=== PATIENT | male | born 1990 | race Caucasian/White ===

== ENCOUNTER 2018-04-16 00:15 | Inpatient (IN) ==
[2018-04-16] MEDS ORDERED: ceFAZolin 2 GM Premix Inj 2 GM/50 ML PIGGYBACK IV.SIG ONE ×2 (00:22→00:30)
[2018-04-16] MEDS ORDERED: Sod Chloride 0.9% Inj 1,000 ML IV.SIG ONE ×2 (00:30→09:00)
[2018-04-16 00:33] LABS: Baso # (Auto) 0.1 th/mm3 (0.0-0.2); Baso % (Auto) 0.6 % (0.0-2.0); Eos % (Auto) 0.2 % (0.0-4.0); Hematocrit 40.8 % (39.0-51.0); Hemoglobin 13.7 gm/dL (13.0-17.0); Lymph # (Auto) 3.9 th/mm3 (1.0-4.8); Lymph % (Auto) 21.2 % (9.0-44.0); Mean Corpuscular HGB Conc 33.5 % (32.0-36.0); Mean Corpuscular Hemoglobin 31.8 pg (27.0-34.0); Mean Corpuscular Volume 94.8 fL (80.0-100.0); Mean Platelet Volume 8.4 fL (7.0-11.0); Mono # (Auto) 0.7 th/mm3 (0.0-0.9); Mono % (Auto) 3.9 % (0.0-8.0); Neut # (Auto) 13.8 th/mm3 (1.8-7.7); Neut % (Auto) 74.1 % (16.0-70.0); Platelet Count 214 th/mm3 (150-450); Red Cell Distribution Width 12.5 % (11.6-17.2); White Blood Count 18.6 th/mm3 (4.0-11.0)
[2018-04-16 00:45] LABS: Activated Partial Thrombo Time 24.7 sec (23.4-31.7); INR 1.2 Ratio; Prothrombin Time 11.7 sec (9.8-11.6)
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
[2018-04-16] MEDS ORDERED: Acetaminophen 325 MG Tablet PO PRN (01:20)
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
[2018-04-16] MEDS ORDERED: Propofol Inj 500 MG/50 ML Vial ONE (01:27)
[2018-04-16] MEDS ORDERED: Sod Chloride 0.9% Inj 1,000 ML IV.CONT SCH (01:30)
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
[2018-04-16] MEDS ORDERED: Propofol 1000 mg/100 ml Inj 1,000 MG/100 ML BOTTLE IV.CONT PRN (01:38)
[2018-04-16] MEDS ORDERED: fentaNYL 10 mcg/mL Premix Drip 2,500 MCG/250 ML BAG IV.SIG PRN (01:41)
[2018-04-16] MEDS ORDERED: Sod Chloride 0.9% Inj 2,000 ML IV.SIG ONE ×2 (01:45→02:30)
[2018-04-16] MEDS ORDERED: Norepinephrine Inj 4 MG/4 ML Ampul ONE (01:52)
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
[2018-04-16] MEDS ORDERED: Pantoprazole Inj 40 MG Vial IV.PUSH SCH (02:00)
[2018-04-16] MEDS ORDERED: Diphtheria/Tetanus/Pertussis Vaccine Inj 0.5 ML Syringe IM ONE (02:00)
[2018-04-16] MEDS ORDERED: Norepinephrine Inj 4 MG in Sodium Chlor 0.9% Inj 246 ML IV.SIG PRN ×2 (02:05→03:57)
[2018-04-16] MEDS ORDERED: Sod Chloride 0.9% Inj 2,000 ML IV.SIG SCH ×2 (02:30→04:45)
[2018-04-16 02:31] LABS: ABG Base Excess -6.8 mmol/L (-2-2); ABG PCO2 53 mmHg (38-42); ABG PO2 109 mmHg (61-120)
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
[2018-04-16] MEDS ORDERED: Magnesium Sulfate Inj 2 GM in Sodium Chlor 0.9% Inj 96 ML IV.SIG PRN (02:40)
[2018-04-16] MEDS ORDERED: Sodium Phosphate Inj 30 MMOL in Sodium Chlor 0.9% Inj 250 ML IV.SIG PRN (02:40)
[2018-04-16] MEDS ORDERED: Potassium Chlor 40 mEq Premix 40 MEQ/100 ML PIGGYBACK IV.SIG PRN ×2 (02:40)
[2018-04-16] MEDS ORDERED: Potassium Chlor 20 mEq Premix 20 MEQ/100 ML PIGGYBACK IV.SIG PRN ×2 (02:40)
[2018-04-16] MEDS ORDERED: Potassium Phosphate 500 MG Soluble Tablet PO PRN ×2 (02:40)
[2018-04-16] MEDS ORDERED: Magnesium Oxide 400 MG Tablet PO PRN (02:40)
[2018-04-16] MEDS ORDERED: Magnesium Sulfate Inj 4 GM in Sodium Chlor 0.9% Inj 92 ML IV.SIG PRN (02:40)
[2018-04-16] MEDS ORDERED: Potassium Chloride 25 MEQ Effervescent Tablet PO PRN (02:40)
[2018-04-16] MEDS ORDERED: Potassium Phosphate Inj 30 MMOL in Sodium Chlor 0.9% Inj 250 ML IV.SIG PRN (02:40)
[2018-04-16 02:52] LABS: Baso % (Auto) 0.3 % (0.0-2.0); Eos % (Auto) 0.1 % (0.0-4.0); Hematocrit 26.4 % (39.0-51.0); Hemoglobin 9.1 gm/dL (13.0-17.0); Lymph # (Auto) 2.3 th/mm3 (1.0-4.8); Lymph % (Auto) 15.9 % (9.0-44.0); Mean Corpuscular HGB Conc 34.7 % (32.0-36.0); Mean Corpuscular Hemoglobin 32.8 pg (27.0-34.0); Mean Corpuscular Volume 94.5 fL (80.0-100.0); Mean Platelet Volume 8.3 fL (7.0-11.0); Mono # (Auto) 0.5 th/mm3 (0.0-0.9); Mono % (Auto) 3.7 % (0.0-8.0); Neut # (Auto) 11.4 th/mm3 (1.8-7.7); Platelet Count 158 th/mm3 (150-450); Red Blood Count 2.79 mil/mm3 (4.50-5.90); Red Cell Distribution Width 12.2 % (11.6-17.2); White Blood Count 14.2 th/mm3 (4.0-11.0)
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
[2018-04-16] MEDS ORDERED: Albumin Human 5% Inj 500 ML IV.SIG ONE (03:00)
[2018-04-16 03:10] LABS: Calcium 6.5 mg/dL (8.5-10.1); Carbon Dioxide 22.8 meq/L (21.0-32.0); Potassium 3.7 meq/L (3.5-5.1)
[2018-04-16 03:18] LABS: Albumin 2.5 g/dL (3.4-5.0); Calcium-Albumin Corrected 7.7 mg/dL (8.5-10.1)
[2018-04-16] MEDS ORDERED: Chlorhexidine Gluconate 2% 1 Pack (2 Cloths) TOPICAL PRN ×2 (04:00)
[2018-04-16] MEDS ORDERED: Chlorhexidine Gluconate 2% 1 Pack (2 Cloths) TOPICAL SCH ×2 (04:00)
[2018-04-16 04:25] LABS: Amphetamine Screen,Urine Neg (Neg); Barbiturate Screen,Urine Neg (Neg); Cannabinoid Screen,Urine Pos (Neg); Cocaine Screen,Urine Neg (Neg)
[2018-04-16] MEDS ORDERED: SODIUM CHLOR 0.9% IV.SIG ONE ×2 (04:26→06:00)
[2018-04-16] MEDS ORDERED: DESMOPRESSIN IV.SIG ONE ×2 (04:26→06:00)
[2018-04-16 04:27] LABS: Opiate Screen,Urine Neg (Neg)
[2018-04-16] MEDS: Sod Chloride 0.9% Inj 1,000 ML IV.SIG SCH ×7 (05:15→12:05)
[2018-04-16 05:58] LABS: Baso % (Auto) 0.3 % (0.0-2.0); Eos % (Auto) 0.1 % (0.0-4.0); Lymph # (Auto) 1.7 th/mm3 (1.0-4.8); Lymph % (Auto) 12.4 % (9.0-44.0); Mean Corpuscular HGB Conc 33.8 % (32.0-36.0); Mean Corpuscular Hemoglobin 32.3 pg (27.0-34.0); Mean Corpuscular Volume 95.7 fL (80.0-100.0); Mean Platelet Volume 8.2 fL (7.0-11.0); Mono % (Auto) 7.1 % (0.0-8.0); Neut # (Auto) 11.2 th/mm3 (1.8-7.7); Neut % (Auto) 80.1 % (16.0-70.0); Platelet Count 127 th/mm3 (150-450); Red Blood Count 2.18 mil/mm3 (4.50-5.90); Red Cell Distribution Width 12.4 % (11.6-17.2)
[2018-04-16 06:09] LABS: ABG Base Excess -11.1 mmol/L (-2-2); ABG PCO2 39 mmHg (38-42); ABG PO2 326 mmHg (61-120)
[2018-04-16 06:19] LABS: Hematocrit 20.8 % (39.0-51.0)
[2018-04-16 06:21] LABS: Calcium 5.8 mg/dL (8.5-10.1); Carbon Dioxide 20.5 meq/L (21.0-32.0); Potassium 4.9 meq/L (3.5-5.1)
[2018-04-16 06:37] LABS: Albumin 2.7 g/dL (3.4-5.0)
[2018-04-16 06:52] LABS: Calcium-Albumin Corrected 6.8 mg/dL (8.5-10.1)
[2018-04-16 07:11] LABS: Eosinophils 1 % (0-4); Lymphocytes 17 % (9-44); Metamyelocytes 1 % (0-1); Monocytes 3 % (0-8)
[2018-04-16 07:12] LABS: Ovalocytes 1+; Platelet Morphology Normal (Normal)
[2018-04-16] MEDS ORDERED: Chlorhexidine 0.12% Oral Kit 15 ML UDC OROPHARYNG SCH (08:00)
[2018-04-16] MEDS: Vasopressin Inj 40 UNIT in Dextrose 5% in Water Inj 98 ML IV.CONT PRN ×4 (08:00→13:11)
[2018-04-16] MEDS ORDERED: Norepinephrine Inj 16 MG in Sodium Chlor 0.9% Inj 234 ML IV.CONT PRN (09:00)
[2018-04-16] MEDS ORDERED: Sodium Chloride 0.9% 2 ML Flush BID IV.FLUSH SCH (09:00)
[2018-04-16 09:43] LABS: Baso % (Auto) 0.3 % (0.0-2.0); Eos % (Auto) 0.2 % (0.0-4.0); Hematocrit 27.8 % (39.0-51.0); Hemoglobin 9.5 gm/dL (13.0-17.0); Lymph # (Auto) 2.1 th/mm3 (1.0-4.8); Lymph % (Auto) 16.4 % (9.0-44.0); Mean Corpuscular HGB Conc 34.2 % (32.0-36.0); Mean Corpuscular Hemoglobin 31.5 pg (27.0-34.0); Mean Corpuscular Volume 92.1 fL (80.0-100.0); Mean Platelet Volume 8.5 fL (7.0-11.0); Mono # (Auto) 0.9 th/mm3 (0.0-0.9); Mono % (Auto) 7.5 % (0.0-8.0); Neut # (Auto) 9.6 th/mm3 (1.8-7.7); Neut % (Auto) 75.6 % (16.0-70.0); Platelet Count 75 th/mm3 (150-450); Red Blood Count 3.01 mil/mm3 (4.50-5.90); Red Cell Distribution Width 13.5 % (11.6-17.2); White Blood Count 12.7 th/mm3 (4.0-11.0)
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
[2018-04-16 09:54] LABS: ABG PCO2 30 mmHg (38-42); ABG PO2 242 mmHg (61-120)
[2018-04-16 09:58] LABS: INR 1.6 Ratio; Prothrombin Time 15.9 sec (9.8-11.6)
[2018-04-16 10:06] LABS: Activated Partial Thrombo Time 37.9 sec (23.4-31.7)
[2018-04-16 10:23] LABS: Calcium 5.6 mg/dL (8.5-10.1); Carbon Dioxide 16.6 meq/L (21.0-32.0)
[2018-04-16 10:30] LABS: Lymphocytes 12 % (9-44); Metamyelocytes 1 % (0-1); Monocytes 6 % (0-8)
[2018-04-16] MEDS ORDERED: Calcium Chloride Inj 2 GM in Sodium Chlor 0.9% Inj 100 ML IV.SIG ONE ×2 (10:30→16:00)
[2018-04-16 10:31] LABS: Platelet Morphology Normal (Normal)
[2018-04-16 10:32] LABS: Acanthocytes Occ; Burr Cells 1+
[2018-04-16 10:32] LABS: Albumin 2.3 g/dL (3.4-5.0)
[2018-04-16] MEDS: SODIUM CHLOR 0.9% IV.SIG SCH ×2 (10:38→17:26)
[2018-04-16] MEDS: DESMOPRESSIN IV.SIG SCH ×2 (10:38→17:26)
[2018-04-16 11:17] LABS: Albumin 2.2 g/dL (3.4-5.0); Calcium 5.4 mg/dL (8.5-10.1); Magnesium 1.6 mg/dL (1.5-2.5); Phosphorus 2.6 mg/dL (2.5-4.9); Total Protein 3.5 g/dL (6.4-8.2)
[2018-04-16] MEDS: Oral Hygiene Kit OROPHARYNG SCH ×2 (12:05→15:58)
[2018-04-16 12:28] LABS: Bacteria,Urine Few /hpf; Bilirubin,Urine Negative (Negative); Clarity,Urine Hazy (Clear); Color,Urine Yellow (Yellw/Straw); Glucose,Urine (UA) Negative (Negative); Leukocyte Esterase,Urine Negative (Negative); Mucus,Urine Few /lpf (Occasional); Nitrite,Urine Negative (Negative); Specific Gravity,Urine 1.023 (1.002-1.035); Squamous Epithelial Cell,Urine <1 /hpf (0-5)
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
[2018-04-16 14:00] LABS: ABG Base Excess -4.5 mmol/L (-2-2); ABG PCO2 35 mmHg (38-42); ABG PO2 117 mmHg (61-120)
[2018-04-16 15:00] LABS: Calcium 6.8 mg/dL (8.5-10.1); Potassium 5.1 meq/L (3.5-5.1)
[2018-04-16 15:22] LABS: Albumin 2.3 g/dL (3.4-5.0); Calcium-Albumin Corrected 8.2 mg/dL (8.5-10.1)
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
[2018-04-16 16:59] LABS: ABG Base Excess -4.7 mmol/L (-2-2); ABG PCO2 45 mmHg (38-42); ABG PO2 293 mmHg (61-120)
[2018-04-16 17:10] LABS: ABG Base Excess -4.7 mmol/L (-2-2); ABG PCO2 41 mmHg (38-42); ABG PO2 302 mmHg (61-120)
[2018-04-16 17:29] LABS: ABG Base Excess -5.4 mmol/L (-2-2); ABG PCO2 78 mmHg (38-42); ABG PO2 257 mmHg (61-120)
[2018-04-16 17:31] LABS: ABG Base Excess -5.8 mmol/L (-2-2); ABG PCO2 87 mmHg (38-42); ABG PO2 229 mmHg (61-120)
[2018-04-16 18:14] LABS: ABG Base Excess -4.7 mmol/L (-2-2); ABG PCO2 36 mmHg (38-42); ABG PO2 85 mmHg (61-120)
[2018-04-16] MEDS ORDERED: Desmopressin Inj 4 MCG/ML Ampul IV.PUSH PRN (18:31)
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
--- NOTE | 2018-04-17 04:07 | XR ---
EXAM DATE: 04/17/2018 3:59 AM EST AGE/SEX: 28 years / Male INDICATIONS: Respiratory distress. CLINICAL DATA: This is the patient's subsequent encounter. Patient reports that signs and symptoms h ave been present for 2 days and indicates a pain score of Nonresponsive. MEDICAL/SURGICAL HISTORY: None. Chest tube, left. Central line. COMPARISON: [facility], CHEST 1V SINGLE AP, 04/16/2018. . FINDINGS: Decreasing parenchymal consolidation and small effusion at the left base. Left chest tube remains in place. No pneumothorax seen. Heart size stable, within normal limits. Endotracheal tube tip is approximately 2.5 cm above the honorio. There is a left subclavian central ve nous catheter again seen with tip in the superior vena cava. A nasogastric tube is been placed, tip i n the stomach. There is debris and moderate distention of the stomach. CONCLUSION: Decreasing consolidation and pleural effusion on the left, now mild/small. New nasogastric tube. There is moderate distention of a debris-filled stomach. Other lines and tubes are unchanged, including left chest tube. No pneumothorax. Electronically signed by: Royce Hager MD Board Certified Radiologist 04/17/2018 4:05 AM EST
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
--- NOTE | 2018-04-20 08:55 | P.DN ---
- Provider Primary care physician: UNKNOWN Consults: 04/16/18 01:20 Consult to Neurosurgery Stat Consulting Provider: Umesh Rousseau For STAT consult, spoke directly to:: Dr. Rousseau Reason for Consultation: head injury, Dr. Rousseau already aware, please add to list STAT Spoke with:: Added to list. Please call MD in AM Date Notified:: 04/16/18 Time Notified:: 01:49 Ordering Provider: GREGORY 04/16/18 01:34 Consult to Nuclear Radiologist Stat Consulting Provider: Clinton Chatman For STAT consult, spoke directly to:: Dr. Chatman Preferred Network Technical Analyst:: Clinton Chatman Reason for Consultation: critical care after trauma, head injury Notified:: Physician Spoke with:: Dr. Lazo Date Notified:: 04/16/18 Time Notified:: 01:50 Ordering Provider: GREGORY 04/16/18 09:48 Consult to Nuclear Radiologist Routine Consulting Provider: Tima Cobb Reason for Consultation: head injury-- [place] Spoke with:: added to list, Dr Durham spoke directly to Dr Cobb Date Notified:: 04/16/18 Time Notified:: 09:55 Ordering Provider: RODGER - Date and Time Date of admission: 04/16/18 01:10 Date of : 04/16/18 Time of : 17:35 - Summary Result Diagrams: 04/16/18 08:56 04/16/18 13:52 Hospital Course: 04/16/2018 I have seen patient now several times starting at 1 AM and then this morning today Neurologically [place] Coma Scale remains 3 Neurosurgery consult was placed with Dr. Rousseau who is at the bedside around 1 AM and has evaluated the patient In the ICU patient has no gag or cough or corneal reflexes Pupils are fixed and dilated about 6 mm Hemodynamically patient is unstable Initially patient is hypotensive and had to be volume loaded with 2 L of normal saline 500 cc of 5% albumin, placed on Levophed drip to maintain systolic and mean arterial blood pressures. Throughout the night patient apparently had large urine output and presumptive diagnosis of diabetes insipidus was made by neurosurgery Patient received 6 mcg of DDAVP This morning I added vasopressin to patient's management and adjusted Levophed Patient was given 3 units PRBC and sodium bicarbonate to correct metabolic acidemia and acidosis Bilateral breath sounds decreased over the left side clearly due to severe pulmonary contusion and chest wall injury with retained blood in the posterior chest Tube thoracostomy is draining dilute blood about 800 cc over the last 12 hours Abdomen is soft Renal function is preserved and patient was placed on vasopressin drip as well as DDAVP in order to counter diabetes insipidus This unfortunate gentleman has no chance of recovery and have discussed this with his mom and stepfather as well as the girlfriend Medical observatory director expert opinion and care as well as neurosurgery care is greatly appreciated. Neurosurgery deemed operative intervention as futile care so no intervention was performed. Patient was determined to be brain by apnea test and clinical exam by Dr Ortiz at 1735 on 04/16/2018. INJURIES: Extensive SAH with edema Large R SDH w/ 15mm left to right shift Extensive skull fxs- L temporal depressed L temporal bone fx extending into the tempro-mandibular joint Extensive facial fxs C7 lateral mass fx LEFT rib fxs (6-12) BILAT pulmonary contusions LEFT JJ/PTX Aspiration Grade II splenic lac L1, L2 transverse process fxs 04/16: LEFT CT placement
== END 2018-04-18 12:05 | disposition expired | DRG 963 ==
LOC: NEPI 00:15 → N03 00:30 → NEDA 01:10 → EDBD 01:10 → N03 01:15
PROVIDERS: ADMIT Surgery; ATTEND Surgery
CPT/HCPCS: 32020; 32551; 36430; 36556; 36600; 36620; 70450; 70486; 71010; 71045; 71260; 72125; 72170; 74177; 80048; 80053; 80307; 81001; 81003; 82040; 82805; 82948; 82962; 83735; 83930; 84100; 85025; 85610; 85730; 86850; 86900; 86901; 86923; 90471; 90715; 90774; 90775; 90784; 94002; 94640; 94656; 94664; 94665; 96374; 96375; 99285; 99291; C8952; C9113; C9238; G0390; J0690; J1953; J2150; J2597; J2704; J3480; J7030; J7050; J7120; P9016; P9045; Q9967